=== PATIENT | female | born 1945 | race Caucasian/White ===

== ENCOUNTER 2017-06-17 19:02 | Inpatient (IN) | payer MEDICARE, OTHER ==
[~2017-06-17] VITALS: Ht 160 cm; Wt 87.7 kg
--- NOTE | 2017-06-17 20:31 | NUR ---
PATIENT HERE [facility] WITH C/O BACK PAIN. ALSO STATES THAT NO BOWEL MOVEMEMENT FOR 2 WEEKS, BP ELEVATED AT THIS TIME, DENIES ANY NAUSEA OR HEADACHE. DR. GALLOWAY NOTIFIED OF ELEVATED BP.
[2017-06-17] MEDS ORDERED: BACL10TA PO (20:44)
[2017-06-17] MEDS ORDERED: LORA0.5T PO (20:44)
[2017-06-17] MEDS ORDERED: MULT-1185 PO (20:44)
[2017-06-17] MEDS ORDERED: ASPI81TA31 PO (20:44)
[2017-06-17] MEDS ORDERED: FLUT1DIS28 IH (20:44)
[2017-06-17] MEDS ORDERED: DOCU-141 PO (20:44)
[2017-06-17] MEDS ORDERED: MORP20SO PO (20:44)
[2017-06-17] MEDS ORDERED: ONDA4TAB5 PO (20:44)
[2017-06-17] MEDS ORDERED: CARV3.12 PO (20:44)
[2017-06-17] MEDS ORDERED: ACET650S24 RC (20:44)
[2017-06-17] MEDS ORDERED: IBUP-1096 PO (20:44)
[2017-06-17] MEDS ORDERED: BISA10SU21 RC (20:44)
[2017-06-17] MEDS ORDERED: HYDR-3326 PO (20:44)
[2017-06-17 20:50] LABS: BASOPHILS # (AUTO) 0.1 K/uL (0.0-8.0); BASOPHILS % (AUTO) 0.9 % (0.0-2.0); EOSINOPHILS # (AUTO) 0.2 K/uL (0.0-0.7); EOSINOPHILS % (AUTO) 2.2 % (0.0-7.0); HEMATOCRIT 49.4 % (37-47); HEMOGLOBIN 16.1 G/DL (12.0-16.0); LYMPHOCYTES # (AUTO) 2.3 K/UL (0.8-4.8); LYMPHOCYTES % (AUTO) 26.1 % (20.5-51.5); MEAN CORPUSCULAR HEMOGLOBIN 29.8 UUG (27.0-31.0); MEAN CORPUSCULAR HGB CONC 33 g/dL (32.0-37.0); MEAN CORPUSCULAR VOLUME 91.3 FL (81.0-99.0); MONOCYTES # (AUTO) 0.6 K/UL (0.1-1.30); MONOCYTES % (AUTO) 7.3 % (0.0-11.0); NEUTROPHILS # (AUTO) 5.7 K/UL (1.8-8.9); NEUTROPHILS % (AUTO) 63.5 % (38.5-71.5); PLATELET COUNT (AUTO) 187 K/UL (150-450); RED BLOOD CELL COUNT(AUTO) 5.41 MIL/UL (4.2-5.4); WHITE BLOOD COUNT (AUTO) 8.9 K/UL (4.0-11.2)
[2017-06-17 21:01] LABS: ALANINE AMINOTRANSFERASE 14 U/L (14-59); ALKALINE PHOSPHATASE 65 U/L (50-136); ASPARTATE AMINOTRANSFERASE 13 U/L (15-37); BILIRUBIN,DIRECT 0.1 mg/dL (0.0-0.2); BILIRUBIN,TOTAL 0.4 mg/dL (0.2-1.0); CARBON DIOXIDE 31 mmol/L (21-32); CHLORIDE 104 mmol/L (98-107); CREATININE 1.3 mg/dL (0.6-1.3); GLUCOSE 98 mg/dL (74-106); LIPASE 164 U/L (73-393); POTASSIUM 4.8 mmol/L (3.5-5.1); TOTAL PROTEIN, SERUM 7.1 g/dL (6.4-8.2); UREA NITROGEN, BLOOD 26 mg/dL (7-18)
[2017-06-17 22:00] LABS: *BILIRUBIN,URIN NEGATIVE (NEGATIVE); *BLOOD, URINE 1+ (NEGATIVE); *COLOR,URINE YELLOW (YELLOW); *KETONES,URINE NEGATIVE (NEGATIVE); *PROTEIN,URINE TRACE (NEGATIVE); *UROBILINOGEN,URINE 0.2 E.U./dl (NORMAL); LEUKOCYTE ESTERASE ,URINE 1+ (NEGATIVE); NITRITE, URINE NEGATIVE (NEGATIVE); PH,URINE 5.5 (5.0-8.0); UGLUCOSE NEGATIVE (NEGATIVE)
[2017-06-17 22:21] LABS: *CLARITY,URINE HAZY (CLEAR)
[2017-06-17 22:25] LABS: BACTERIA,URINE FEW /HPF (NONE SEEN); MUCUS,URINE MODERATE /LPF (0-FEW); SQUAMOUS EPITHELIAL CELL,UR MODERATE /HPF (NONE SEEN); TRICHOMONAS,URINE PRESENT /HPF (NONE SEEN)
--- NOTE | 2017-06-17 23:01 | NUR ---
[facility] CALLED, DR. PETERS SQE.
--- NOTE | 2017-06-17 23:16 | NUR ---
Pt. admitted to [facility] , under care of Dr. PETERS Belongs List completed. MRSA SWAB SENT. REPORT CALLED TO FRANK BRAVO.
[2017-06-17] MEDS ORDERED: MORPHINE SULFATE 2 MG/1 ML DISP.SYRIN IV PRN (23:45)
[2017-06-17] MEDS ORDERED: ACETAMINOPHEN 325 MG TABLET PO PRN (23:45)
[2017-06-17] MEDS ORDERED: ONDANSETRON 4 MG/2 ML VIAL IV PRN (23:45)
[2017-06-17] MEDS ORDERED: ALBUTEROL SULFATE 2.5 MG/3 ML NEBU NEB PRN (23:45)
[2017-06-17] MEDS ORDERED: CEFTRIAXONE 1 G in IV DEXTROSE 5% 50 ML IV SCH (23:45)
[2017-06-17] MEDS ORDERED: MAGNESIUM HYDROXIDE 30 ML LIQUID UDC PO PRN (23:45)
[2017-06-17] MEDS ORDERED: hydrALAZINE HCL 25 MG TABLET PO PRN (23:45)
[2017-06-18 00:25] VITALS: BP 151/60
--- NOTE | 2017-06-18 00:25 | NUR ---
TRANSPORTED PATIENT TO ROOM 216 VIA GURNEY, NO ACUTE DISTRESS. HANDOFF GIVEN TO FRANK BRAVO AT BEDSIDE.
--- NOTE | 2017-06-18 00:25 | NUR ---
RECEIVED PT FROM ER [facility]IA [facility], PT IS ALERT AND RESPONSIVE, RESP IS EVEN AND UNLABORED NO SOB. ON 2L O2 VIA NC. PT ADMITTED TO TELE FOR BACK PAIN AND HTN. NO C/O PAIN OR DISCOMFORT AT THIS TIME. VSS. ORIENTED PT TO ROOM, CALL LIGHT. ADMISSION CARE RENDERED, CALL LIGHT WITH IN REACH. SAFETY MEASURE IN PLACE.
[2017-06-18] MEDS ORDERED: CEFTRIAXONE 1 G VIAL ONE (02:11)
[2017-06-18 06:50] LABS: BASOPHILS # (AUTO) 0.1 K/uL (0.0-8.0); BASOPHILS % (AUTO) 0.8 % (0.0-2.0); EOSINOPHILS # (AUTO) 0.1 K/uL (0.0-0.7); EOSINOPHILS % (AUTO) 1.6 % (0.0-7.0); HEMATOCRIT 46.8 % (37-47); HEMOGLOBIN 15.8 G/DL (12.0-16.0); LYMPHOCYTES # (AUTO) 1.8 K/UL (0.8-4.8); LYMPHOCYTES % (AUTO) 21.5 % (20.5-51.5); MEAN CORPUSCULAR HEMOGLOBIN 30.6 UUG (27.0-31.0); MEAN CORPUSCULAR HGB CONC 34 g/dL (32.0-37.0); MEAN CORPUSCULAR VOLUME 90.7 FL (81.0-99.0); MONOCYTES # (AUTO) 0.6 K/UL (0.1-1.30); MONOCYTES % (AUTO) 7.3 % (0.0-11.0); NEUTROPHILS # (AUTO) 5.9 K/UL (1.8-8.9); NEUTROPHILS % (AUTO) 68.8 % (38.5-71.5); PLATELET COUNT (AUTO) 152 K/UL (150-450); RED BLOOD CELL COUNT(AUTO) 5.16 MIL/UL (4.2-5.4); WHITE BLOOD COUNT (AUTO) 8.5 K/UL (4.0-11.2)
[2017-06-18 06:54] VITALS: BP 165/69
--- NOTE | 2017-06-18 06:57 | NUR ---
PT IN BED, RESTING COMFORTABLY. RESP IS EVEN AND UNLABORED. NO SOB, NO ACUTE DISTRESS. NO C/O PAIN OR DISCOMFORT AT THIS TIME. ON TELE MONITORING, SINUS PADMINI. IV ON LEFT AC, PATENT AND INTACT. CALL LIGHT WITHIN REACH. WILL CONT TO MONITOR.
[2017-06-18] MEDS ORDERED: PANTOPRAZOLE SODIUM 40 MG TABLET.DR PO SCH (07:00)
[2017-06-18 07:09] LABS: THYROID STIMULATING HORMONE 3.355 mIU/mL (0.358-3.740)
[2017-06-18] MEDS ORDERED: MORPHINE SULFATE 4 MG/1 ML DISP.SYRIN IV PRN (07:15)
[2017-06-18 07:16] LABS: ALANINE AMINOTRANSFERASE 12 U/L (14-59); ALKALINE PHOSPHATASE 58 U/L (50-136); ASPARTATE AMINOTRANSFERASE 14 U/L (15-37); BILIRUBIN,TOTAL 0.4 mg/dL (0.2-1.0); CARBON DIOXIDE 33 mmol/L (21-32); CHLORIDE 106 mmol/L (98-107); CHOLESTEROL 140 mg/dL (<200); CREATININE 1.2 mg/dL (0.6-1.3); GLUCOSE 89 mg/dL (74-106); HDL CHOLESTEROL 52 mg/dL (40-60); MAGNESIUM 2.1 mg/dL (1.8-2.4); TOTAL PROTEIN, SERUM 6.4 g/dL (6.4-8.2); TRIGLYCERIDES 111 MG/DL (30-150); UREA NITROGEN, BLOOD 22 mg/dL (7-18)
--- NOTE | 2017-06-18 08:00 | NUR ---
awake alert and oriented, denies of pain, tele SB 50, on 2l/nc, denies of dyspnea, expalined plan of care- verbalized understanding,safety measures maintained, call light within reach
[2017-06-18] MEDS ORDERED: FLUTICASONE/VILANTEROL 1 EACH BLST.W.DEV INH SCH (09:00)
[2017-06-18] MEDS ORDERED: FLUTICASONE/SALMETEROL 250/50 INHALER INH SCH (09:00)
[2017-06-18] MEDS ORDERED: CARVEDILOL 3.125 MG TABLET PO SCH (09:00)
[2017-06-18] MEDS ORDERED: FLUTICASONE/SALMETEROL 250/50 INHALER IH SCH (09:45)
[2017-06-18] MEDS ORDERED: MAGNESIUM HYDROXIDE 30 ML LIQUID UDC PO ONE (09:45)
[2017-06-18] MEDS ORDERED: BISACODYL 10 MG SUPP.RECT RC PRN (09:45)
[2017-06-18] MEDS ORDERED: Medication Not On Formulary EA (Multivit-Min/Iron Fum/Folic AC (Multi-Vitamin-Minerals T PO SCH (09:45)
[2017-06-18] MEDS ORDERED: ASPIRIN 81 MG TAB.CHEW PO SCH (09:45)
[2017-06-18] MEDS ORDERED: AMLODIPINE 10 MG TABLET PO SCH (09:45)
[2017-06-18] MEDS ORDERED: MULTIVIT, IRON, MIN NO. 8, FA TABLET PO SCH (09:49)
--- NOTE | 2017-06-18 10:15 | NUR ---
to CT dept per w/c with [address] lumbar spine without contrast
--- NOTE | 2017-06-18 10:30 | NUR ---
back in the room, PT to see pt
[2017-06-18] MEDS ORDERED: MAGNESIUM CITRATE 296 ML BOTTLE PO ONE (10:45)
--- NOTE | 2017-06-18 11:34 | NUR ---
TEXTED DR. VELASQUEZ FOR MRI APPROVAL.
--- NOTE | 2017-06-18 11:35 | NUR ---
TEXTED BACK.HE WILL LET US KNOW.
--- NOTE | 2017-06-18 12:00 | NUR ---
informed that MRI of the Lumbar spine to be done today at [facility]- in agreement- ambulance to pick her up at 0250
--- NOTE | 2017-06-18 12:45 | NUR ---
ambulance here- report given, remains on SB 50's
[2017-06-18] MEDS: BACLOFEN 10 MG TABLET PO SCH ×2 (13:11→16:51)
[2017-06-18] MEDS ORDERED: LOSARTAN POTASSIUM 25 MG TABLET PO SCH (14:15)
--- NOTE | 2017-06-18 14:40 | NUR ---
back from [facility] for MRI, BP 124/58 HR 52, denies of pain, assisted to BR and had a large bowel movement
[2017-06-18 16:33] VITALS: BP 104/44
--- NOTE | 2017-06-18 18:59 | NUR ---
ambulated in the [address] [facility], wanted to go down and smoke but told not to- pt still has some wheezes at times, smoking cessation instructions given but states been smoking for years. All needsa taken and met, call light within reach
--- NOTE | 2017-06-18 19:00 | NUR ---
Bedside reporting with FRANK Mon. Found patient in the bathroom smoking, refused to give away addiction medicine physician and uncooperative. She get mad for being reminded and to be reminded. Security was called, still uncooperative, threaten to go AMA. coincidentally making rounds, made aware and talked to the patient, and agreed to cooperate. Will continue to have close visual supervision.
[2017-06-18 20:00] VITALS: BP 182/59
[2017-06-18] MEDS ORDERED: FUROSEMIDE 20 MG/2 ML VIAL IV SCH (20:15)
[2017-06-18] MEDS ORDERED: DOCUSATE SODIUM 100 MG CAPSULE PO SCH (21:00)
--- NOTE | 2017-06-18 21:55 | NUR ---
Report given to Crow at [facility].
--- NOTE | 2017-06-18 21:58 | NUR ---
To [facility] via Ambulance. VSS. No complaint presented. Not in respiratory distress.
[2017-06-18] MEDS ORDERED: METRONIDAZOLE 500 MG/NS 100ML 500 MG in PREMIXED 1 EACH IV SCH (22:00)
[2017-06-19] MEDS ORDERED: CEFTRIAXONE 1 G in IV DEXTROSE 5% 50 ML IV SCH (02:00)
== END 2017-06-18 22:17 | disposition short-term general hospital (02) | DRG 551 ==
LOC: ER 19:03 → TELE 23:00
PROVIDERS: ADMIT Internal Medicine; ATTEND Internal Medicine
DX: M51.16 Intervertebral disc disorders with radiculopathy, lumbar region (principal); N17.0 Acute kidney failure with tubular necrosis; I50.33 Acute on chronic diastolic (congestive) heart failure; D68.59 Other primary thrombophilia; J96.11 Chronic respiratory failure with hypoxia; N39.0 Urinary tract infection, site not specified; E44.0 Moderate protein-calorie malnutrition; J98.11 Atelectasis; M48.06 Spinal stenosis, lumbar region; I10 Essential (primary) hypertension; I50.9 Heart failure, unspecified; F41.9 Anxiety disorder, unspecified; Z88.0 Allergy status to penicillin; Z91.011 Allergy to milk products; J44.9 Chronic obstructive pulmonary disease, unspecified; A59.9 Trichomoniasis, unspecified; E66.9 Obesity, unspecified; Z68.34 Body mass index [BMI] 34.0-34.9, adult; I11.0 Hypertensive heart disease with heart failure; I71.4 Abdominal aortic aneurysm, without rupture; N32.3 Diverticulum of bladder; K56.41 Fecal impaction; Z74.09 Other reduced mobility; F17.210 Nicotine dependence, cigarettes, uncomplicated; G89.29 Other chronic pain; I70.0 Atherosclerosis of aorta; M43.16 Spondylolisthesis, lumbar region; M41.9 Scoliosis, unspecified; M77.9 Enthesopathy, unspecified; M47.9 Spondylosis, unspecified; Z82.49 Family history of ischemic heart disease and other diseases of the circulatory system; Z79.82 Long term (current) use of aspirin
CPT/HCPCS: 36415; 70030-TC; 71010; 72131; 72148; 83690; 83735; 84100; 84443; 85025; 93005; 97161; A4663; J0696; J1940; J3490; J7050; J7060

== ENCOUNTER 2017-06-23 13:42 | Inpatient (IN) | payer MEDICARE, OTHER ==
[~2017-06-23] VITALS: Ht 162.6 cm; Wt 89.4 kg
[~2017-06-23 13:42] MED LIST: ACET650S24 RC; ASPI81TA31 PO; BACL10TA PO; BISA10SU21 RC; CARV3.12 PO; DOCU-141 PO; FLUT1DIS28 IH; HYDR-3326 PO; IBUP-1096 PO; LORA0.5T PO; MORP20SO PO; MULT-1185 PO; ONDA4TAB5 PO
[2017-06-23] MEDS ORDERED: ALBUTEROL SULFATE 2.5 MG/3 ML NEBU NEB ONE (14:30)
[2017-06-23] MEDS ORDERED: ALBU2.5V38 IH (14:38)
[2017-06-23] MEDS ORDERED: AMLO10TA4 PO (14:38)
[2017-06-23] MEDS ORDERED: FLUT1BLS IH (14:39)
[2017-06-23] MEDS ORDERED: BACL10TA PO (14:39)
[2017-06-23] MEDS ORDERED: LOSA25TA13 PO (14:39)
[2017-06-23] MEDS ORDERED: FURO-152 PO (14:39)
[2017-06-23] MEDS ORDERED: MAGN400O6 PO (14:39)
[2017-06-23 14:42] LABS: CARBON DIOXIDE 34 mmol/L (21-32); CHLORIDE 103 mmol/L (98-107); CREATININE 1.4 mg/dL (0.6-1.3); GLUCOSE 100 mg/dL (74-106); POTASSIUM 4.5 mmol/L (3.5-5.1); UREA NITROGEN, BLOOD 31 mg/dL (7-18)
[2017-06-23 14:43] LABS: *BILIRUBIN,URIN NEGATIVE (NEGATIVE); *BLOOD, URINE 2+ (NEGATIVE); *CLARITY,URINE SLIGHTLY CLOUDY (CLEAR); *COLOR,URINE YELLOW (YELLOW); *KETONES,URINE NEGATIVE (NEGATIVE); *PROTEIN,URINE NEGATIVE (NEGATIVE); *UROBILINOGEN,URINE 0.2 E.U./dl (NORMAL); BASOPHILS % (AUTO) 0.5 % (0.0-2.0); EOSINOPHILS # (AUTO) 0.2 K/uL (0.0-0.7); HEMATOCRIT 53.4 % (37-47); HEMOGLOBIN 17.3 G/DL (12.0-16.0); LEUKOCYTE ESTERASE ,URINE 3+ (NEGATIVE); LYMPHOCYTES % (AUTO) 22.1 % (20.5-51.5); MEAN CORPUSCULAR HEMOGLOBIN 29.6 UUG (27.0-31.0); MEAN CORPUSCULAR HGB CONC 32 g/dL (32.0-37.0); MEAN CORPUSCULAR VOLUME 91.2 FL (81.0-99.0); MONOCYTES # (AUTO) 0.6 K/UL (0.1-1.30); MONOCYTES % (AUTO) 6.5 % (0.0-11.0); NEUTROPHILS # (AUTO) 6.1 K/UL (1.8-8.9); NEUTROPHILS % (AUTO) 68.9 % (38.5-71.5); NITRITE, URINE NEGATIVE (NEGATIVE); PH,URINE 5.5 (5.0-8.0); PLATELET COUNT (AUTO) 186 K/UL (150-450); RED BLOOD CELL COUNT(AUTO) 5.86 MIL/UL (4.2-5.4); UGLUCOSE NEGATIVE (NEGATIVE); WHITE BLOOD COUNT (AUTO) 8.9 K/UL (4.0-11.2)
--- NOTE | 2017-06-23 14:44 | NUR ---
EKG, SALINE LOCK, LABS/BLOOD CX/URINE/CXR/EKG COMPLETED. PRESENTLY MONITOR SHOWS SINUS PADMINI AT 55BPM, PO2=89% ON ROOM AIR. RT CALLED FOR A RESP TX. PT POSITIONED FOR COMFORT.
[2017-06-23 14:55] LABS: ALANINE AMINOTRANSFERASE 16 U/L (14-59); ALKALINE PHOSPHATASE 70 U/L (50-136); ASPARTATE AMINOTRANSFERASE 14 U/L (15-37); BILIRUBIN,DIRECT 0.2 mg/dL (0.0-0.2); BILIRUBIN,TOTAL 0.7 mg/dL (0.2-1.0); TOTAL PROTEIN, SERUM 7.8 g/dL (6.4-8.2)
[2017-06-23] MEDS ORDERED: ALBUTEROL SULFATE 2.5 MG/3 ML NEBU ONE (14:59)
[2017-06-23 15:06] LABS: BACTERIA,URINE MODERATE /HPF (NONE SEEN); MUCUS,URINE MODERATE /LPF (0-FEW); RBC,URINE 20-50 /HPF (0-3); SQUAMOUS EPITHELIAL CELL,UR MODERATE /HPF (NONE SEEN); TRICHOMONAS,URINE MODERATE /HPF (NONE SEEN); WBC,URINE 20-50 /HPF (0-3)
--- NOTE | 2017-06-23 15:57 | NUR ---
SBAR REPORT TO ROSARIO RN2ND FLOOR, BELONGINGS LIST/MRSE-NARES/ADMIT ORDER/ADMIT DATA SHEET/SKIN BREAKDOWWN ASSESSMENT COMPLETED. PT TO RM 206 [facility]IA [employer]. PT ON 2 L O2 VIA NASAL CANNULA.
[2017-06-23 16:30] VITALS: BP 142/69
--- NOTE | 2017-06-23 16:45 | NUR ---
DR TAPIA IN ROOM WITH PT, PT SINUS PADMINI ON TELE MONITOR, ADMISSION PROTOCOL FOLLOWED, PT SAT 96% ON 2L NC. IV INTACT AND PATENT, CALL LIGHT IN REACH, ORIENTED TO ROOM, ADVISED PT NOT TO AMBULATE TO BATHROOM UNTIL A NURSE IS PRESENT, PT VERBALIZED UNDERSTANDING, WILL CONTINUE TO MONITOR
--- NOTE | 2017-06-23 18:32 | NUR ---
PT SITTING AT EDGE OF BED, JUST FINISHED EATING, IN NO ACUTE DISTRESS. CALL LIGHT IN REACH
[2017-06-23] MEDS ORDERED: LEVOFLOXACIN 500 MG/D5W 500 MG in PREMIXED 1 EACH IV SCH (19:30)
[2017-06-23] MEDS ORDERED: BISACODYL 10 MG SUPP.RECT RC PRN (19:30)
[2017-06-23] MEDS ORDERED: MORPHINE SULFATE 2 MG/1 ML DISP.SYRIN IV PRN (19:30)
[2017-06-23] MEDS ORDERED: ONDANSETRON 4 MG/2 ML VIAL IV PRN (19:30)
[2017-06-23] MEDS ORDERED: ACETAMINOPHEN 325 MG TABLET PO PRN (19:30)
[2017-06-23] MEDS ORDERED: ALBUTEROL SULFATE 2.5 MG/3 ML NEBU NEB PRN (19:30)
[2017-06-23] MEDS ORDERED: ALBUTEROL SULFATE 2.5 MG/3 ML NEBU IH PRN (19:30)
[2017-06-23] MEDS ORDERED: IPRATROPIUM BROMIDE 0.5 MG/2.5 ML NEBU NEB PRN (19:30)
[2017-06-23] MEDS ORDERED: LEVOFLOXACIN 250MG /D5W 250 MG in PREMIXED 1 EACH IV SCH (20:00)
[2017-06-23] MEDS ORDERED: LEVOFLOXACIN 500 MG/D5W 500 MG in PREMIXED 1 EACH IV ONE (20:00)
--- NOTE | 2017-06-23 21:00 | NUR ---
received patient alert,oriented, ambulatory, using FWW.unsteady gait, bp stable, SB on tele monitor,slight sob on exertion,instructed patient to call for assistance,patient is smoker,patient education given,patient refused Nicotine patch when offered,fall precautions maintains.
[2017-06-23] MEDS: BACLOFEN 10 MG TABLET PO SCH (21:10)
[2017-06-23 22:14] VITALS: BP 140/69
[2017-06-23] MEDS: METRONIDAZOLE 500 MG/NS 100ML 500 MG in PREMIXED 1 EACH IV SCH (22:29)
[2017-06-24 00:32] VITALS: BP 137/50
[2017-06-24 05:32] VITALS: BP 146/111
[2017-06-24] MEDS: METRONIDAZOLE 500 MG/NS 100ML 500 MG in PREMIXED 1 EACH IV SCH ×3 (06:06→21:41)
[2017-06-24] MEDS: PANTOPRAZOLE SODIUM 40 MG TABLET.DR PO SCH (06:07)
[2017-06-24] MEDS: BACLOFEN 10 MG TABLET PO SCH ×3 (06:07→21:52)
[2017-06-24 06:36] LABS: BASOPHILS # (AUTO) 0.1 K/uL (0.0-8.0); BASOPHILS % (AUTO) 0.7 % (0.0-2.0); EOSINOPHILS # (AUTO) 0.2 K/uL (0.0-0.7); EOSINOPHILS % (AUTO) 1.9 % (0.0-7.0); HEMATOCRIT 49.6 % (37-47); HEMOGLOBIN 16.3 G/DL (12.0-16.0); MEAN CORPUSCULAR HEMOGLOBIN 29.6 UUG (27.0-31.0); MEAN CORPUSCULAR HGB CONC 33 g/dL (32.0-37.0); MEAN CORPUSCULAR VOLUME 90.5 FL (81.0-99.0); MONOCYTES # (AUTO) 0.7 K/UL (0.1-1.30); NEUTROPHILS # (AUTO) 6.1 K/UL (1.8-8.9); NEUTROPHILS % (AUTO) 67.4 % (38.5-71.5); PLATELET COUNT (AUTO) 170 K/UL (150-450); RED BLOOD CELL COUNT(AUTO) 5.48 MIL/UL (4.2-5.4); WHITE BLOOD COUNT (AUTO) 9.1 K/UL (4.0-11.2)
[2017-06-24 06:53] LABS: ALANINE AMINOTRANSFERASE 14 U/L (14-59); ALKALINE PHOSPHATASE 66 U/L (50-136); ASPARTATE AMINOTRANSFERASE 16 U/L (15-37); BILIRUBIN,TOTAL 0.7 mg/dL (0.2-1.0); CARBON DIOXIDE 32 mmol/L (21-32); CHLORIDE 102 mmol/L (98-107); CREATININE 1.4 mg/dL (0.6-1.3); GLUCOSE 105 mg/dL (74-106); MAGNESIUM 2.4 mg/dL (1.8-2.4); POTASSIUM 4.4 mmol/L (3.5-5.1); TOTAL PROTEIN, SERUM 7.3 g/dL (6.4-8.2); UREA NITROGEN, BLOOD 31 mg/dL (7-18)
--- NOTE | 2017-06-24 08:00 | NUR ---
RESTING ON CHAIR ORIENTED X3 NO SIGNS OF PAIN OR DISTRESS, CLOSELY MONITORED
[2017-06-24] MEDS: AMLODIPINE 10 MG TABLET PO SCH (08:38)
[2017-06-24] MEDS: FUROSEMIDE 20 MG/2 ML VIAL IV SCH (08:38)
[2017-06-24] MEDS: DOCUSATE SODIUM 100 MG CAPSULE PO SCH ×2 (08:39→16:37)
[2017-06-24] MEDS: FLUTICASONE/VILANTEROL 1 EACH BLST.W.DEV IH SCH (08:40)
[2017-06-24 11:17] VITALS: BP 98/52
--- NOTE | 2017-06-24 11:30 | NUR ---
PATIENT TENDS TO GO DOWN AND SMOKE ON HER OWN, SMOKING POLICY REINFORCE, NO SIGNS OF DISTRESS
[2017-06-24 15:45] VITALS: BP 119/58
--- NOTE | 2017-06-24 16:06 | NUR ---
SEEN BY DR PETERS SEE NOTES, SR ON MONITOR DENIES SOB OR CHEST PAIN
[2017-06-24 20:00] VITALS: BP 128/50
[2017-06-24] MEDS ORDERED: LEVOFLOXACIN 500 MG/D5W 500 MG in PREMIXED 1 EACH IV ONE (20:00)
[2017-06-24] MEDS: LEVOFLOXACIN 250MG /D5W 250 MG in PREMIXED 1 EACH IV SCH (20:15)
[2017-06-24] MEDS ORDERED: diphenhydrAMINE 50 MG/1 ML VIAL IV PRN (21:30)
--- NOTE | 2017-06-24 21:35 | NUR ---
patient c/o itching after received Levaquin ivpb,and also slightly redness noted along the iv site, notified ,Benadryl 25 mg iv admin,continue closely monitor.
[2017-06-24] MEDS ORDERED: diphenhydrAMINE 50 MG/1 ML VIAL ONE (21:37)
[2017-06-24] MEDS: hydrALAZINE HCL 25 MG TABLET PO PRN (23:50)
[2017-06-25] VITALS: BP 166/63
--- NOTE | 2017-06-25 00:05 | NUR ---
BP 166/63,PRN APRESOLINE 25 MG PO ADMIN ORDER, PATIENT SLEEPING INTERMITTENTLY, NO ACUTE DISTRESS.
[2017-06-25 04:00] VITALS: BP 160/73
--- NOTE | 2017-06-25 06:00 | NUR ---
bp 160/73,Norvasc 10 mg po admin as schedule, continue closely monitor bp.
[2017-06-25] MEDS: METRONIDAZOLE 500 MG/NS 100ML 500 MG in PREMIXED 1 EACH IV SCH (06:06)
[2017-06-25] MEDS: BACLOFEN 10 MG TABLET PO SCH ×3 (06:06→21:00)
[2017-06-25] MEDS: PANTOPRAZOLE SODIUM 40 MG TABLET.DR PO SCH (06:06)
[2017-06-25] MEDS: AMLODIPINE 10 MG TABLET PO SCH (06:07)
--- NOTE | 2017-06-25 08:00 | NUR ---
SBP 131/50, NO SOB OR SIGNS OF DISTRESS, DENIES PAIN
[2017-06-25] MEDS: DOCUSATE SODIUM 100 MG CAPSULE PO SCH ×2 (08:52→16:56)
[2017-06-25] MEDS: FLUTICASONE/VILANTEROL 1 EACH BLST.W.DEV IH SCH (08:52)
[2017-06-25] MEDS: FUROSEMIDE 20 MG/2 ML VIAL IV SCH (08:53)
[2017-06-25 08:56] VITALS: BP 131/50
[2017-06-25 11:32] VITALS: BP 117/57
--- NOTE | 2017-06-25 12:00 | NUR ---
PER [facility] PLAN DC TO [facility] IN AM
[2017-06-25] MEDS: METRONIDAZOLE 500 MG TABLET PO SCH ×2 (13:01→21:00)
--- NOTE | 2017-06-25 13:13 | NUR ---
SEEN BY DR ALONSO SEE NOTES
[2017-06-25 15:30] VITALS: BP 102/63
--- NOTE | 2017-06-25 17:20 | NUR ---
PATIENT CONTINUE TO PROGRESS, NO SIGNS OF PAIN OR SOP, TOLERATING TX. PLAN DC IN AM
--- NOTE | 2017-06-25 19:26 | NUR ---
Received patient sitting on bed watching TV. Patient is awake and oriented x4, and able to verbalize needs. Respirations are unlabored ,and no signs of distress noted. No pain reported by patient when asked. Call light within reach. Will continue to monitor
[2017-06-25 19:51] VITALS: BP 120/63
[2017-06-25] MEDS: LEVOFLOXACIN 250MG /D5W 250 MG in PREMIXED 1 EACH IV SCH (20:38)
--- NOTE | 2017-06-25 21:40 | NUR ---
Removed IV on right hand after completion of IV Levofloxacin infusion due to patient complaining of discomfort. Educated patient on importance of maintaining IV access. Patient still refusing insertion of a new IV. No other issues reported by patient. Patient resting comfortably in bed watching television. No distress noted. Bed in lowest position with 2/4 siderails up for safety. Call light within reach. Will continue to monitor
[2017-06-26 04:09] VITALS: BP 164/61
[2017-06-26] MEDS: hydrALAZINE HCL 25 MG TABLET PO PRN (04:14)
[2017-06-26 06:45] LABS: BASOPHILS % (AUTO) 0.6 % (0.0-2.0); EOSINOPHILS # (AUTO) 0.1 K/uL (0.0-0.7); EOSINOPHILS % (AUTO) 1.5 % (0.0-7.0); HEMATOCRIT 48.8 % (37-47); HEMOGLOBIN 16.2 G/DL (12.0-16.0); LYMPHOCYTES # (AUTO) 1.7 K/UL (0.8-4.8); LYMPHOCYTES % (AUTO) 22.9 % (20.5-51.5); MEAN CORPUSCULAR HEMOGLOBIN 30.2 UUG (27.0-31.0); MEAN CORPUSCULAR HGB CONC 33 g/dL (32.0-37.0); MONOCYTES # (AUTO) 0.6 K/UL (0.1-1.30); MONOCYTES % (AUTO) 8.6 % (0.0-11.0); NEUTROPHILS # (AUTO) 5.1 K/UL (1.8-8.9); NEUTROPHILS % (AUTO) 66.4 % (38.5-71.5); PLATELET COUNT (AUTO) 151 K/UL (150-450); RED BLOOD CELL COUNT(AUTO) 5.36 MIL/UL (4.2-5.4); WHITE BLOOD COUNT (AUTO) 7.5 K/UL (4.0-11.2)
[2017-06-26] MEDS: BACLOFEN 10 MG TABLET PO SCH ×2 (06:46→13:29)
[2017-06-26] MEDS: METRONIDAZOLE 500 MG TABLET PO SCH ×2 (06:46→13:30)
[2017-06-26] MEDS: PANTOPRAZOLE SODIUM 40 MG TABLET.DR PO SCH (06:46)
[2017-06-26 07:09] LABS: ALANINE AMINOTRANSFERASE 12 U/L (14-59); ALKALINE PHOSPHATASE 60 U/L (50-136); ASPARTATE AMINOTRANSFERASE 14 U/L (15-37); BILIRUBIN,TOTAL 0.5 mg/dL (0.2-1.0); CARBON DIOXIDE 32 mmol/L (21-32); CHLORIDE 104 mmol/L (98-107); CREATININE 1.4 mg/dL (0.6-1.3); GLUCOSE 102 mg/dL (74-106); PHOSPHOROUS 3.7 mg/dL (2.5-4.9); TOTAL PROTEIN, SERUM 6.9 g/dL (6.4-8.2); UREA NITROGEN, BLOOD 35 mg/dL (7-18)
[2017-06-26 07:14] LABS: MAGNESIUM 2.2 mg/dL (1.8-2.4)
[2017-06-26] MEDS ORDERED: FUROSEMIDE 20 MG TABLET PO SCH (09:00)
[2017-06-26] MEDS: AMLODIPINE 10 MG TABLET PO SCH (09:14)
[2017-06-26] MEDS: DOCUSATE SODIUM 100 MG CAPSULE PO SCH (09:14)
[2017-06-26] MEDS: FLUTICASONE/VILANTEROL 1 EACH BLST.W.DEV IH SCH (09:16)
[2017-06-26 11:35] VITALS: BP 110/64
--- NOTE | 2017-06-26 12:15 | NUR ---
The patient will be discharged today back to [facility] [ ] via [facility]. Dr. Mccall spoke to her and she agreed to return to the SNF. Spoke to Selena from from [facility] and she confirmed that they will re-admit the patient today. Her RN, Gemma, is aware of her discharge plan and will call the facility for the report.
[2017-06-26] MEDS ORDERED: LEVO500T2 PO (14:32)
[2017-06-26] MEDS ORDERED: ACET325T53 PO (14:32)
[2017-06-26] MEDS ORDERED: FAMO-132 PO (14:32)
[2017-06-26] MEDS ORDERED: IPRA0.2S6 NEB (14:32)
[2017-06-26] MEDS ORDERED: BACL10TA PO (14:32)
[2017-06-26] MEDS ORDERED: METR500T4 PO (14:32)
[2017-06-26 15:21] VITALS: BP 118/82
== END 2017-06-26 15:45 | DRG 291 ==
LOC: ER 13:42 → MED 16:36 → TELE 16:49 → MED 06-25 11:50
PROVIDERS: ADMIT Internal Medicine; ATTEND Internal Medicine
DX: I11.0 Hypertensive heart disease with heart failure (principal); N17.0 Acute kidney failure with tubular necrosis; J44.1 Chronic obstructive pulmonary disease with (acute) exacerbation; D68.59 Other primary thrombophilia; N39.0 Urinary tract infection, site not specified; J96.11 Chronic respiratory failure with hypoxia; I50.33 Acute on chronic diastolic (congestive) heart failure; Z66 Do not resuscitate; M47.896 Other spondylosis, lumbar region; F17.210 Nicotine dependence, cigarettes, uncomplicated; E66.8 Other obesity; Z68.33 Body mass index [BMI] 33.0-33.9, adult; K59.00 Constipation, unspecified; N32.3 Diverticulum of bladder; Z87.01 Personal history of pneumonia (recurrent); Z88.0 Allergy status to penicillin; Z91.011 Allergy to milk products; Z79.82 Long term (current) use of aspirin; Z79.899 Other long term (current) drug therapy; M51.16 Intervertebral disc disorders with radiculopathy, lumbar region; Z74.09 Other reduced mobility; A59.09 Other urogenital trichomoniasis; I71.4 Abdominal aortic aneurysm, without rupture; Z82.49 Family history of ischemic heart disease and other diseases of the circulatory system; I35.0 Nonrheumatic aortic (valve) stenosis; F41.9 Anxiety disorder, unspecified; N28.1 Cyst of kidney, acquired; N28.89 Other specified disorders of kidney and ureter
CPT/HCPCS: 36415; 70030-TC; 71010; 83605; 83735; 84100; 85025; 85730; 87040; 87086; 93005; 93307; 97161; A4663; J1200; J1940; J1956; J3490; J7050